=== PATIENT | female | born 1995 | race Two or more races ===

== ENCOUNTER → 2017-08-12 | Outpatient (CLI) | payer MEDICAID | END | disposition home or self-care (01) | LOC: LAB 10:48 | PROVIDERS: ATTEND Obstetrics & Gynecology | DX: O23.30 Infections of other parts of urinary tract in pregnancy, unspecified trimester (principal); Z3A.00 Weeks of gestation of pregnancy not specified | CPT/HCPCS: 87086 ==

== ENCOUNTER → 2017-12-16 | Outpatient (CLI) | payer MEDICAID ==
[2017-12-16 11:50] LABS: Basophils # (auto) 0 uL; Basophils % (auto) 0.4 % (0.0-2.0); Eosinophils # (auto) 0.1 uL; Eosinophils % (auto) 0.7 % (0.0-7.0); Hematocrit 38.5 % (36.0-46.0); Hemoglobin 12.9 g/dL (12.2-16.2); Lymphocytes # (auto) 1.9 uL; Lymphocytes % (auto) 20.4 % (10.0-50.0); Mean Corpuscular Hemoglobin 31.3 pg (28.0-32.0); Mean Corpuscular Hgb Conc. 33.5 g/dL (32.0-36.0); Mean Corpuscular Volume 93.5 fL (80.0-100.0); Monocytes # (auto) 0.7 uL; Monocytes % (auto) 8.1 % (0.0-12.0); Neutrophils # (auto) 6.4 uL; Neutrophils % (auto) 70.4 % (37.0-80.0); Platelet Count (auto) 275 10^3/uL (140-450); Red Blood Cells 4.11 10^6/uL (4.0-5.20); Red Cell Distribution Width 13.8 % (11.8-14.3); White Blood Cell 9.2 10^3/uL (4.4-10.8)
== END | disposition home or self-care (01) ==
LOC: LAB 11:05
PROVIDERS: ATTEND Obstetrics & Gynecology
DX: Z34.80 Encounter for supervision of other normal pregnancy, unspecified trimester (principal); Z3A.00 Weeks of gestation of pregnancy not specified
CPT/HCPCS: 36415; 85025

== ENCOUNTER 2018-01-11 06:08 | Inpatient (IN) | payer MEDICAID ==
[~2018-01-11] VITALS: Ht 160 cm; Wt 68.5 kg
[~2018-01-11 06:08] MED LIST: NIF10C PO; PREN-96 PO
[2018-01-11] MEDS ORDERED: LACTATED RINGER'S 1,000 ML IV SCH (06:24)
[2018-01-11 07:21] LABS: Basophils # (auto) 0 uL; Basophils % (auto) 0.5 % (0.0-2.0); Eosinophils # (auto) 0.1 uL; Eosinophils % (auto) 0.9 % (0.0-7.0); Hematocrit 41.4 % (36.0-46.0); Hemoglobin 14.3 g/dL (12.2-16.2); Lymphocytes # (auto) 2.3 uL; Lymphocytes % (auto) 27.8 % (10.0-50.0); Mean Corpuscular Hemoglobin 32.7 pg (28.0-32.0); Mean Corpuscular Hgb Conc. 34.5 g/dL (32.0-36.0); Mean Corpuscular Volume 94.8 fL (80.0-100.0); Monocytes # (auto) 0.7 uL; Monocytes % (auto) 8.1 % (0.0-12.0); Neutrophils # (auto) 5.1 uL; Neutrophils % (auto) 62.7 % (37.0-80.0); Nucleated Red Blood Cells % 0.1 %; Platelet Count (auto) 238 10^3/uL (140-450); Red Blood Cells 4.37 10^6/uL (4.0-5.20); Red Cell Distribution Width 13.9 % (11.8-14.3); White Blood Cell 8.2 10^3/uL (4.4-10.8)
[2018-01-11 07:46] LABS: INR 0.87 (0.9-1.15); Partial Thromboplastin Time 26.8 sec (23.78-33.04); Prothrombin Time 9.4 sec (9.27-12.13)
[2018-01-11 08:00] LABS: Albumin 2.7 g/dL (3.4-5.0); BUN/Creatinine Ratio 8.8; Bilirubin, Total 0.3 mg/dL (0.2-1.0); Calcium 8.6 mg/dL (8.5-10.1); Potassium 3.6 mmol/L (3.5-5.1); Total Protein 6.5 g/dL (6.4-8.2)
[2018-01-11] MEDS ORDERED: SUCCINYLCHOLINE CHLORIDE 20 MG/ML 10ML VIAL IV ONE (08:13)
[2018-01-11] MEDS ORDERED: TETRACAINE 1% INJ 2 ML VIAL IJ ONE (08:13)
[2018-01-11] MEDS ORDERED: MORPHINE SULF(PF) 0.5MG/ML 10ML VIAL ONE (08:14)
[2018-01-11] MEDS ORDERED: fentaNYL CITRATE 100 MCG/2 ML VL ONE (08:14)
[2018-01-11] MEDS ORDERED: OXYTOCIN 10 UNIT/ML 10ML VIAL IV ONE (08:15)
[2018-01-11 08:33] LABS: Urine Bacteria FEW /hpf (None Seen); Urine Blood TRACE /uL (Negative); Urine Mucus FEW (None Seen); Urine Specific Gravity 1.008 (1.001-1.035); Urine WBC 1 /hpf (0 - 5)
[2018-01-11] MEDS ORDERED: CLINDAMYCIN 600MG IV 50 ML IV ONE (08:37)
[2018-01-11] MEDS ORDERED: LACT. RINGERS/OXYTOCIN 20UNITS 1,000 ML IV SCH (09:02)
[2018-01-11] MEDS ORDERED: MORPHINE SULF INJ 2 MG/ML SYRINGE 1ML IV PRN (09:15)
[2018-01-11] MEDS ORDERED: ONDANSETRON HCL 4 MG/2 ML VIAL IV PRN ×2 (09:15→09:30)
[2018-01-11] MEDS ORDERED: NALOXONE HCL 0.4 MG/ML VIAL IV PRN (09:30)
[2018-01-11] MEDS ORDERED: diphenhdrAMINE HCL 50 MG/1 ML VL IV PRN (09:30)
[2018-01-11 10:45] VITALS: BP 106/75
[2018-01-11] MEDS: KETOROLAC TROMETH 30 MG/ML 1ML VIAL IV PRN ×2 (11:19→21:02)
[2018-01-11 13:15] VITALS: BP 105/71
[2018-01-11] MEDS: ACETAMINOPHEN 325 MG TAB PO PRN (13:32)
[2018-01-11 15:00] VITALS: BP 111/64
[2018-01-11] MEDS ORDERED: CLINDAMYCIN 600MG IV 50 ML IV SCH (17:30)
[2018-01-11 19:30] VITALS: BP 120/75
[2018-01-11 20:08] LABS: Basophils # (auto) 0 uL; Basophils % (auto) 0.4 % (0.0-2.0); Eosinophils # (auto) 0.1 uL; Eosinophils % (auto) 0.5 % (0.0-7.0); Hematocrit 36.7 % (36.0-46.0); Hemoglobin 12.4 g/dL (12.2-16.2); Lymphocytes % (auto) 18.1 % (10.0-50.0); Mean Corpuscular Hemoglobin 31.9 pg (28.0-32.0); Mean Corpuscular Hgb Conc. 33.7 g/dL (32.0-36.0); Mean Corpuscular Volume 94.6 fL (80.0-100.0); Monocytes # (auto) 0.9 uL; Neutrophils # (auto) 8.1 uL; Platelet Count (auto) 225 10^3/uL (140-450); Red Blood Cells 3.88 10^6/uL (4.0-5.20); White Blood Cell 11.1 10^3/uL (4.4-10.8)
[2018-01-11 23:00] VITALS: BP 112/67
[2018-01-12] MEDS: CLINDAMYCIN 600MG IV 50 ML IV SCH ×2 (01:35→09:00)
[2018-01-12 03:05] VITALS: BP 112/73
[2018-01-12] MEDS: ACETAMINOPHEN 325 MG TAB PO PRN (04:05)
[2018-01-12] MEDS ORDERED: BISACODYL 10 MG RECT SUPP PR PRN ×2 (05:00→09:30)
[2018-01-12] MEDS: LACTATED RINGER'S 1,000 ML IV SCH ×2 (05:00→14:50)
[2018-01-12] MEDS: KETOROLAC TROMETH 30 MG/ML 1ML VIAL IV PRN (05:50)
[2018-01-12] MEDS ORDERED: SIMETHICONE 80 MG CHEWABLE TABLET PO SCH (06:00)
[2018-01-12] MEDS: SIMETHICONE 80 MG CHEWABLE TABLET PO SCH ×3 (06:03→21:52)
[2018-01-12 06:18] LABS: Basophils # (auto) 0 uL; Basophils % (auto) 0.4 % (0.0-2.0); Eosinophils # (auto) 0.1 uL; Eosinophils % (auto) 0.6 % (0.0-7.0); Hematocrit 36.6 % (36.0-46.0); Hemoglobin 12.5 g/dL (12.2-16.2); Lymphocytes # (auto) 1.9 uL; Lymphocytes % (auto) 17.4 % (10.0-50.0); Mean Corpuscular Hemoglobin 32.4 pg (28.0-32.0); Mean Corpuscular Hgb Conc. 34.1 g/dL (32.0-36.0); Mean Corpuscular Volume 94.8 fL (80.0-100.0); Monocytes # (auto) 0.7 uL; Monocytes % (auto) 6.6 % (0.0-12.0); Neutrophils # (auto) 8.2 uL; Platelet Count (auto) 236 10^3/uL (140-450); Red Blood Cells 3.86 10^6/uL (4.0-5.20); Red Cell Distribution Width 14.1 % (11.8-14.3); White Blood Cell 10.9 10^3/uL (4.4-10.8)
[2018-01-12 07:00] VITALS: BP 103/68
[2018-01-12] MEDS: HYDROcodone-ACET 5/325MG TAB PO PRN ×2 (10:00→18:55)
[2018-01-12] MEDS ORDERED: DOCUSATE SOD 100 MG CAP PO SCH (10:00)
[2018-01-12] MEDS: FERROUS SULFATE 325 MG TAB PO SCH ×2 (10:03→21:52)
[2018-01-12] MEDS: DOCUSATE SOD 100 MG CAP PO SCH ×2 (10:03→21:53)
[2018-01-12] MEDS: DOCUSATE CALCIUM 240 MG CAP PO SCH (10:04)
[2018-01-12 11:05] VITALS: BP 111/73
[2018-01-12 15:00] VITALS: BP 116/75
[2018-01-12] MEDS: IBUPROFEN 800 MG TAB PO PRN (15:25)
[2018-01-12 18:45] VITALS: BP 111/71
[2018-01-12 23:30] VITALS: BP_SYST 110; BP_SYST 111; BP_DIAS 71; BP_DIAS 72
[2018-01-13] VITALS (7 sets, daily range): BP systolic 102–129; BP diastolic 55–76
[2018-01-13] MEDS: HYDROcodone-ACET 5/325MG TAB PO PRN ×3 (00:08→21:56)
[2018-01-13 05:09] LABS: RPR Non Reactive (Non Reactive)
[2018-01-13] MEDS: SIMETHICONE 80 MG CHEWABLE TABLET PO SCH ×4 (06:03→21:55)
[2018-01-13] MEDS: IBUPROFEN 800 MG TAB PO PRN ×2 (07:44→19:01)
[2018-01-13] MEDS: FERROUS SULFATE 325 MG TAB PO SCH ×2 (09:45→21:55)
[2018-01-13] MEDS: DOCUSATE SOD 100 MG CAP PO SCH ×2 (09:45→21:55)
[2018-01-13] MEDS: DOCUSATE CALCIUM 240 MG CAP PO SCH (09:45)
[2018-01-14] MEDS: HYDROcodone-ACET 5/325MG TAB PO PRN ×2 (01:42→08:11)
[2018-01-14 02:33] VITALS: BP 120/91
[2018-01-14] MEDS: SIMETHICONE 80 MG CHEWABLE TABLET PO SCH (05:32)
[2018-01-14] MEDS: IBUPROFEN 800 MG TAB PO PRN (05:33)
[2018-01-14 07:07] VITALS: BP 117/73
[2018-01-14 08:26] VITALS: BP 117/73
== END 2018-01-14 09:35 | disposition home or self-care (01) | DRG 540 ==
LOC: LDRP 06:08
PROVIDERS: ADMIT Specialist; ATTEND Specialist
PROC: 10D00Z1 Extraction of Products of Conception, Low, Open Approach (ICD-10-PCS; principal; 2018-01-11 08:15)
DX: O34.219 Maternal care for unspecified type scar from previous cesarean delivery (principal); O69.1XX0 Labor and delivery complicated by cord around neck, with compression, not applicable or unspecified; Z88.0 Allergy status to penicillin; Z37.0 Single live birth; Z3A.38 38 weeks gestation of pregnancy
CPT/HCPCS: 36415; 51702; 59025; 80053; 81001; 85025; 85610; 85730; 86592; 86850; 86900; 86901; 96365; 96366; 96375; J0330; J1885; J2590; J3490

== ENCOUNTER → 2019-08-13 | Outpatient (CLI) | payer MEDICAID ==
[~2019-08-13] MED LIST changes: -NIF10C PO
[2019-08-13 10:13] LABS: Basophils # (auto) 0 uL; Basophils % (auto) 0.5 % (0.0-2.0); Eosinophils # (auto) 0.1 uL; Eosinophils % (auto) 0.7 % (0.0-7.0); Hematocrit 36.9 % (36.0-46.0); Hemoglobin 12.9 g/dL (12.2-16.2); Lymphocytes # (auto) 1.7 uL; Mean Corpuscular Hemoglobin 33.2 pg (28.0-32.0); Mean Corpuscular Hgb Conc. 34.9 g/dL (32.0-36.0); Mean Corpuscular Volume 95.3 fL (80.0-100.0); Monocytes # (auto) 0.7 uL; Neutrophils # (auto) 6.9 uL; Neutrophils % (auto) 73.8 % (37.0-80.0); Platelet Count (auto) 282 10^3/uL (140-450); Red Blood Cells 3.87 10^6/uL (4.0-5.20); Red Cell Distribution Width 13.9 % (11.8-14.3); White Blood Cell 9.3 10^3/uL (4.4-10.8)
== END | disposition home or self-care (01) ==
LOC: LAB 10:01
PROVIDERS: ATTEND Obstetrics & Gynecology
DX: O99.810 Abnormal glucose complicating pregnancy (principal); Z3A.27 27 weeks gestation of pregnancy
CPT/HCPCS: 36415; 82951; 85025

== ENCOUNTER 2019-10-21 14:06 | Observation (INO) | payer MEDICAID | END 2019-10-21 15:46 | disposition home or self-care (01) | DRG 566 | LOC: LDRP 14:06 | PROVIDERS: ADMIT Specialist; ATTEND Specialist | DX: O24.419 Gestational diabetes mellitus in pregnancy, unspecified control (principal); Z3A.37 37 weeks gestation of pregnancy | CPT/HCPCS: 76818; 81002; 82962; G0378 ==

== ENCOUNTER 2019-10-28 11:02 | Observation (INO) | payer MEDICAID ==
[2019-10-28] MEDS ORDERED: TERBUTALINE SULFATE 1 MG/ML 1ML VIAL SC ONE (12:30)
== END 2019-10-28 12:55 | disposition home or self-care (01) | DRG 566 ==
LOC: LDRP 11:02
PROVIDERS: ADMIT Obstetrics & Gynecology; ATTEND Obstetrics & Gynecology
DX: O24.410 Gestational diabetes mellitus in pregnancy, diet controlled (principal); Z3A.38 38 weeks gestation of pregnancy
CPT/HCPCS: 59025; 76818; 81002; 82962; 96372; G0378; J3105

== ENCOUNTER 2019-11-02 11:12 | Observation (INO) | payer MEDICAID ==
[~2019-11-02] VITALS: Ht 160 cm; Wt 72.6 kg
[2019-11-02] MEDS ORDERED: TERBUTALINE SULFATE 1 MG/ML 1ML VIAL SC SCH (12:00)
[2019-11-02 13:55] LABS: Basophils # (auto) 0 10 ^3/uL (0-0.2); Basophils % (auto) 0.5 % (0.0-2.0); Eosinophils # (auto) 0.1 10 ^3/uL (0-0.8); Eosinophils % (auto) 0.8 % (0.0-7.0); Hematocrit 40.1 % (36.0-46.0); Hemoglobin 13.5 g/dL (12.2-16.2); Lymphocytes # (auto) 1.8 10 ^3/uL (0.4-5.4); Lymphocytes % (auto) 23.8 % (10.0-50.0); Mean Corpuscular Hemoglobin 32.1 pg (28.0-32.0); Mean Corpuscular Hgb Conc. 33.6 g/dL (32.0-36.0); Mean Corpuscular Volume 95.5 fL (80.0-100.0); Monocytes # (auto) 0.5 10 ^3/uL (0-1.3); Monocytes % (auto) 6.7 % (0.0-12.0); Neutrophils # (auto) 5.1 10 ^3/uL (1.6-8.6); Neutrophils % (auto) 68.2 % (37.0-80.0); Platelet Count (auto) 277 10^3/uL (140-450); Red Cell Distribution Width 13.6 % (11.8-14.3); White Blood Cell 7.5 10^3/uL (4.4-10.8)
[2019-11-02 14:08] LABS: Urine Bacteria FEW /hpf (None Seen); Urine Blood Negative /uL (Negative); Urine Mucus FEW (None Seen); Urine WBC <1 /hpf (0 - 5)
[2019-11-02 14:08] LABS: INR 0.94 (0.9-1.15)
[2019-11-02 14:11] LABS: Albumin 2.7 g/dL (3.4-5.0); Calcium 8.4 mg/dL (8.5-10.1); Potassium 3.3 mmol/L (3.5-5.1)
[2019-11-02 14:15] LABS: BUN/Creatinine Ratio 12.7; Bilirubin, Total 0.3 mg/dL (0.2-1.0); Total Protein 6.5 g/dL (6.4-8.2)
== END 2019-11-02 13:40 | disposition home or self-care (01) | DRG 566 ==
LOC: LDRP 11:12
PROVIDERS: ADMIT Obstetrics & Gynecology; ATTEND Obstetrics & Gynecology
DX: O24.410 Gestational diabetes mellitus in pregnancy, diet controlled (principal); Z3A.38 38 weeks gestation of pregnancy; Z98.891 History of uterine scar from previous surgery
CPT/HCPCS: 36415; 59025; 76818; 80053; 81001; 81002; 82948; 82962; 84112; 85025; 85610; 85730; 86592; 86850; 86900; 86901; 96372; G0378

== ENCOUNTER 2019-11-03 04:32 | Inpatient (IN) | payer MEDICAID ==
[2019-11-03] VITALS (13 sets, daily range): BP systolic 94–126; BP diastolic 59–82
[~2019-11-03] VITALS: Ht 160 cm; Wt 71.2 kg
[2019-11-03] MEDS: LACTATED RINGER'S 1,000 ML IV SCH ×3 (06:29→17:25)
[2019-11-03] MEDS ORDERED: SODIUM CITR/CITRIC ACID ORAL SOLN 30 ML PO SCH (07:00)
[2019-11-03] MEDS ORDERED: MORPHINE SULF(PF) 0.5MG/ML 10ML VIAL ONE (07:03)
[2019-11-03] MEDS ORDERED: fentaNYL CITRATE 100 MCG/2 ML VL ONE (07:03)
[2019-11-03] MEDS ORDERED: ePHEDrine SULFATE 50 MG/ML AMP ONE (07:05)
[2019-11-03] MEDS ORDERED: ONDANSETRON HCL 4 MG/2 ML VIAL ONE (07:05)
[2019-11-03] MEDS ORDERED: oxyTOCIN 10 UNIT/ML 10ML VIAL ONE (07:05)
[2019-11-03] MEDS ORDERED: GLYCOPYRROLATE 0.2 MG/ML 1ML VIAL ONE (07:05)
[2019-11-03] MEDS ORDERED: TETRACAINE 1% INJ 2 ML VIAL IJ ONE (07:08)
[2019-11-03] MEDS ORDERED: SUCCINYLCHOLINE CHLORIDE 20 MG/ML 10ML VIAL IV ONE (07:12)
[2019-11-03] MEDS ORDERED: CLINDAMYCIN 600MG IV 50 ML IV ONE (07:32)
[2019-11-03] MEDS ORDERED: LACT. RINGERS/OXYTOCIN 20UNITS 1,000 ML IV SCH (08:02)
[2019-11-03] MEDS ORDERED: ceFAZolin 1GM/50ML 50 ML IV SCH (08:15)
[2019-11-03] MEDS ORDERED: ONDANSETRON HCL 4 MG/2 ML VIAL IV PRN ×3 (08:15→08:30)
[2019-11-03] MEDS ORDERED: FAMOTIDINE (10MG/ML) 2ML VL IV ONE ×2 (08:30→08:39)
[2019-11-03] MEDS ORDERED: HYDROmorphone HCL 2 MG/ML VL IV PRN (08:30)
[2019-11-03] MEDS ORDERED: DexAMETHasone SOD PHOS 10MG/1ML VIAL INJ IV PRN (08:30)
[2019-11-03] MEDS ORDERED: NALBUPHINE HCL 10 MG/1ml INJECTION SUBCUT ONE (08:30)
[2019-11-03] MEDS ORDERED: diphenhdrAMINE HCL 50 MG/1 ML VL IV PRN (08:30)
[2019-11-03] MEDS ORDERED: NALOXONE HCL 0.4 MG/ML VIAL IV PRN (08:30)
--- NOTE | 2019-11-03 09:15 | NUR ---
Post Op for LDRP: Received patient from PACU via bed to room 7B . Patient A/A/Ox4, abdominal binder and bilateral SCD's are in place and working, IV fluids placed on pump and infusing per order, incisional site dressing clean/dry/intact and Hayden Catheter to gravity draining clear yellow urine. Incentive Spirometer at bedside and instruction on proper use with return demonstration done by patient.
[2019-11-03] MEDS ORDERED: ACETAMINOPHEN IV 1000 MG/100ML (10MG/ML) IV SCH (10:00)
[2019-11-03] MEDS: MORPHINE SULFATE 4 MG/ML SYR/VIAL IV PRN ×3 (12:14→19:34)
[2019-11-03] MEDS ORDERED: CLINDAMYCIN 900MG IV 50 ML IV SCH (14:00)
[2019-11-03] MEDS: ACETAMINOPHEN IV 1000 MG/100ML (10MG/ML) IV PRN (14:24)
[2019-11-03] MEDS: CLINDAMYCIN 900MG IV 50 ML IV SCH ×2 (15:13→21:46)
[2019-11-03 19:45] LABS: Basophils # (auto) 0 10 ^3/uL (0-0.2); Basophils % (auto) 0.3 % (0.0-2.0); Eosinophils # (auto) 0.1 10 ^3/uL (0-0.8); Eosinophils % (auto) 0.5 % (0.0-7.0); Hematocrit 38.9 % (36.0-46.0); Lymphocytes # (auto) 1.8 10 ^3/uL (0.4-5.4); Lymphocytes % (auto) 17.7 % (10.0-50.0); Mean Corpuscular Hgb Conc. 33.4 g/dL (32.0-36.0); Mean Corpuscular Volume 95.9 fL (80.0-100.0); Monocytes # (auto) 0.8 10 ^3/uL (0-1.3); Monocytes % (auto) 8.3 % (0.0-12.0); Neutrophils # (auto) 7.4 10 ^3/uL (1.6-8.6); Neutrophils % (auto) 73.2 % (37.0-80.0); Platelet Count (auto) 253 10^3/uL (140-450); Red Blood Cells 4.06 10^6/uL (4.0-5.20); Red Cell Distribution Width 13.6 % (11.8-14.3); White Blood Cell 10.1 10^3/uL (4.4-10.8)
[2019-11-03] MEDS ORDERED: AMMONIA 0.33 ML INHALANT IN ONE (23:46)
[2019-11-04 03:00] VITALS: BP 102/67
[2019-11-04] MEDS: ACETAMINOPHEN IV 1000 MG/100ML (10MG/ML) IV PRN (03:59)
[2019-11-04] MEDS ORDERED: WITCH HAZEL-GLYCERIN PAD TOP PRN (04:30)
[2019-11-04] MEDS ORDERED: DERMOPLAST 60ML BOTTLE TOP ONE (04:30)
[2019-11-04] MEDS: CLINDAMYCIN 900MG IV 50 ML IV SCH (05:25)
[2019-11-04 06:30] LABS: Basophils # (auto) 0.1 10 ^3/uL (0-0.2); Basophils % (auto) 0.6 % (0.0-2.0); Eosinophils # (auto) 0 10 ^3/uL (0-0.8); Eosinophils % (auto) 0.3 % (0.0-7.0); Hematocrit 36.3 % (36.0-46.0); Hemoglobin 12.3 g/dL (12.2-16.2); Lymphocytes # (auto) 1.1 10 ^3/uL (0.4-5.4); Lymphocytes % (auto) 9.4 % (10.0-50.0); Mean Corpuscular Hemoglobin 32.1 pg (28.0-32.0); Mean Corpuscular Hgb Conc. 33.9 g/dL (32.0-36.0); Mean Corpuscular Volume 94.7 fL (80.0-100.0); Monocytes # (auto) 0.9 10 ^3/uL (0-1.3); Monocytes % (auto) 7.3 % (0.0-12.0); Neutrophils % (auto) 82.4 % (37.0-80.0); Nucleated Red Blood Cells % 0.1 %; Platelet Count (auto) 263 10^3/uL (140-450); Red Blood Cells 3.83 10^6/uL (4.0-5.20); Red Cell Distribution Width 13.6 % (11.8-14.3); White Blood Cell 12.1 10^3/uL (4.4-10.8)
[2019-11-04 07:00] VITALS: BP 104/59
[2019-11-04] MEDS ORDERED: SIMETHICONE 80 MG CHEWABLE TABLET PO PRN (08:45)
[2019-11-04] MEDS ORDERED: HYDROcodone-ACET 5/325MG TAB PO PRN (08:45)
[2019-11-04] MEDS: HYDROcodone-ACET 5/325MG TAB PO PRN ×2 (09:01→17:20)
[2019-11-04] MEDS: DOCUSATE SOD 100 MG CAP PO SCH ×2 (10:16→21:20)
[2019-11-04] MEDS: IBUPROFEN 800 MG TAB PO PRN ×2 (10:16→21:27)
[2019-11-04 11:00] VITALS: BP 117/71
--- NOTE | 2019-11-04 15:12 | NUR ---
Teaching: Reviewed information in [employer] booklet with patient. Discussed benefits of and risks associated with not . Discussed different positions, proper latch, feeding cues, and baby-led . Provided information of medication side effects related to . All questions and concerns addressed at this time. Patient verbalized understanding of information.
--- NOTE | 2019-11-04 15:12 | NUR ---
Bottle-feeding Education: Patient encouraged to breastfeed. Benefits of and the risk of providing formula to was discussed. Patient verbalized understanding of the benefits and is aware of risk and insists on bottle-feeding. Formula provided and instruction on formula preperation from the [employer] booklet reviewed with patient.
[2019-11-04 15:20] VITALS: BP 110/73
[2019-11-04 19:00] VITALS: BP 107/66
--- NOTE | 2019-11-04 21:00 | NUR ---
Patient states she is itching on her arms, legs and stomach, and states she thinks its from something she ate earlier. No rash is seen, redness noted in areas of where pt is itching herself. Pt requesting medication at this time. FUNMI Joshi called and made aware. Orders received for Benadryl 25mg PO q8h.
[2019-11-04] MEDS ORDERED: diphenhdrAMINE HCL 25 MG CAP PO PRN (21:15)
[2019-11-04 22:34] VITALS: BP 97/49
[2019-11-05] MEDS: HYDROcodone-ACET 5/325MG TAB PO PRN ×3 (02:39→20:22)
[2019-11-05 03:01] VITALS: BP 110/63
[2019-11-05] MEDS: IBUPROFEN 800 MG TAB PO PRN ×3 (05:32→21:59)
[2019-11-05 06:52] VITALS: BP 109/67
[2019-11-05] MEDS: DOCUSATE SOD 100 MG CAP PO SCH ×2 (09:44→21:58)
[2019-11-05 11:28] VITALS: BP 111/63
[2019-11-05 15:00] VITALS: BP 126/74
[2019-11-05] MEDS ORDERED: MILK OF MAGNESIA 30ML SUSP PO ONE (17:45)
[2019-11-05 19:14] VITALS: BP 118/75
[2019-11-05] MEDS ORDERED: BISACODYL 10 MG RECT SUPP PR ONE (21:00)
--- NOTE | 2019-11-05 22:20 | NUR ---
BM Patient calls nurses station. reports BM. This RN visualized BM in toilet. Patient reports relief.
[2019-11-05 22:45] VITALS: BP 111/68
--- NOTE | 2019-11-05 22:51 | NUR ---
Pt out of bed ambulating in hallway with steady gait pushing in crib. No signs of distress noted.
[2019-11-06 03:20] VITALS: BP 115/71
--- NOTE | 2019-11-06 03:30 | NUR ---
PENNY REMOVED Incision is clean, dry, intact and well approximated. Steri strips placed along incision. No signs of dehiscence or evisceration. Pt tolerates removal of penny well.
[2019-11-06] MEDS: HYDROcodone-ACET 5/325MG TAB PO PRN ×2 (05:25→09:33)
--- NOTE | 2019-11-06 06:02 | NUR ---
Report received from Yesenia Matt RN on stable pt. Assumed care. Addendum: 11/06/19 at 0608 by Elza Gu RN Amended: Links added.
[2019-11-06 06:30] VITALS: BP 104/66
--- NOTE | 2019-11-06 06:30 | NUR ---
Lower abdominal incision open to air, well approximated with steri strips in place. No redness, drainage, or bleeding noted. Abdominal binder in place. Incentive spirometer at bedside, pt educated on use and the importance of using IS at least 10 x per hour, while awake. Pt also educated on the importance of ambulation. Pt verbalizes understanding. Addendum: 11/06/19 at 0708 by lEza Gu RN Amended: Links added.
[2019-11-06] MEDS: IBUPROFEN 800 MG TAB PO PRN (07:27)
--- NOTE | 2019-11-06 08:57 | NUR ---
Discharge: Discharge instructions given as ordered. Pt encouraged to follow up with [facility] as instructed. All questions and concerns addressed. Patient verbalized understanding. Medication reconciliation completed and copy given to patient. Patient encouraged to prepare to depart unit.
[2019-11-06] MEDS: DOCUSATE SOD 100 MG CAP PO SCH (09:32)
[2019-11-06 10:34] VITALS: BP 116/66
--- NOTE | 2019-11-06 10:58 | NUR ---
Discharge: Patient ambulated, per request with steady gait to vehicle with all personal belongings, accompanied by staff and family member. No distress noted at time of departure, no adverse changes in status since initial assessment.
== END 2019-11-06 10:58 | disposition home or self-care (01) | DRG 540 ==
LOC: LDRP 04:32
PROVIDERS: ADMIT Obstetrics & Gynecology; ATTEND Obstetrics & Gynecology
PROC: 10D00Z1 Extraction of Products of Conception, Low, Open Approach (ICD-10-PCS; principal; 2019-11-03 07:22)
DX: O34.211 Maternal care for low transverse scar from previous cesarean delivery (principal); Z37.0 Single live birth; Z3A.38 38 weeks gestation of pregnancy; Z88.0 Allergy status to penicillin
CPT/HCPCS: 36415; 51702; 59025; 76818; 80053; 81001; 81002; 82948; 82962; 84112; 85025; 85610; 85730; 86592; 86850; 86900; 86901; 94760; 96361; 96372; G0378; J0131; J0330; J2405; J2590; J3490